=== PATIENT | female | born 1965 | race Caucasian/White ===

== ENCOUNTER → 2016-08-30 | Outpatient (CLI) | payer OTHER ==
--- NOTE | 2016-08-30 14:57 | MA ---
Diagnostic Digital Mammogram With iCAD Analysis Clinical Indications: Evaluate palpable painful area in the medial right breast. Technique: Standard cephalocaudal projections are obtained. Digital breast tomosynthesis was performe d in the MLO projection with reconstruction at 1.0 mm slice thickness and composite MLO views reconst ructed. A skin marker is placed over the palpable region. A true lateral view of the right breast is also performed. This examination is processed by the iCAD computer aided detection system. Comparison: December 2009 and November 2009. Breast density: Type C: Heterogeneously dense. Findings: CAD was reviewed. No masses, suspicious calcifications or secondary signs of malignancy are seen. No discrete mammographic abnormality is seen corresponding to the palpable region. There has b een no significant change in the appearance of either breast. Impression: Palpable area requires further evaluation, BI-RADS 0. Recommendation: Targeted right breast ultrasound which will be subsequently performed today. [facility] will send a result letter to the patient. Negative mammography should not preclude additional workup of a clinically suspicious finding. The patient's information is entered into a reminder system with a target due date for her next mammo gram.
--- NOTE | 2016-08-30 15:32 | US ---
Right Breast Ultrasound History: Evaluate palpable asymmetry in the inferior right breast at the 5-6 o'clock position 8 cm fr om the nipple. Technique: Longitudinal and transverse images were obtained utilizing a 15 MHz transducer. Color Dop pler evaluation is employed for assessment of vascularity. This study is interpreted in conjunction with diagnostic mammography performed earlier today. Findings: On physical examination the palpable asymmetry is identified in the inferior right breast. Sonographic interrogation demonstrates normal glandular elements. The palpable region appears to castillo espond to a breast lobule that is partially circumscribed by fibrous tissue. No suspicious solid mass is identified. The sonographic findings would correlate well with appearance on recent diagnostic to mosynthesis. Impression: Benign findings when considering mammographic and sonographic assessment, BI-RADS 2.. Recommendation: Resume routine mammographic screening in one year as long as physical examination is negative. Findings and follow-up recommendations were reviewed with the patient in detail. [facility] will send a result letter to the patient.
== END ==
LOC: FIMAGING 14:18
PROVIDERS: ATTEND Internal Medicine
DX: N63 Unspecified lump in breast (principal)
CPT/HCPCS: G0204; G0279

== ENCOUNTER 2017-04-05 09:59 | Emergency (ER) | payer OTHER ==
[2017-04-05 10:10] VITALS: BP 140/80; PULSE 80; RESP 20; TEMP 97.9; O2SAT 94
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
== END 2017-04-05 11:04 | disposition home or self-care (01) ==
LOC: CED 09:59
DX: S89.92XA Unspecified injury of left lower leg, initial encounter (principal); W22.8XXA Striking against or struck by other objects, initial encounter
CPT/HCPCS: 73564-PO; L1830

== ENCOUNTER → 2017-08-12 | Outpatient (CLI) | payer OTHER | LOC: FIMAGING 16:51 | PROVIDERS: ATTEND Nurse Practitioner Adult Health | DX: R05 Cough (principal) ==

== ENCOUNTER 2018-06-24 14:02 | Emergency (ER) | payer OTHER ==
[2018-06-24] MEDS ORDERED: ONDANSETRON 4 MG/2 ML VIAL ONE (14:15)
[2018-06-24 14:31] LABS: PLATELET COUNT 148 10^3/uL (150-400)
--- NOTE | 2018-06-24 14:38 | EDPHY ---
HPI/HX/ROS/PE/MDM Narrative: CLINICAL IMPRESSION: Closed head injury, new onset seizure in adult ASSESSMENT/PLAN: This is a 52-year-old female who presents to the emergency department by ambulance after sustaining a closed head injury from ground level fall followed by seizure activity witnessed by a co-worker. Patient was alert on arrival. She was incontinent of urine and did bite her tongue and lip with no suturable laceration. She has a large scalp hematoma over the right parietal region with no overlying laceration or suturable wound. CT head and cervical spine show no evidence of acute intracranial hemorrhage, skull fracture, or intracranial mass. Patient's C-collar was removed by myself, no upper extremity radiculopathy or weakness and full range of motion with no midline pain. Lab work shows no significant electrolyte abnormality, metabolic disturbance, anemia or infectious etiology. Patient has nonfocal neurological exam on recheck. She tolerated p. O. Well. I had a long discussion with the patient that she will require primary care and neurology follow-up. 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 Avoidance of all contact sports, driving, and concussion triggers were discussed until clearance by PCP and Neurology. Patient will take work off tomorrow and does have family and neighbors who can stay with her and help arrange follow-up with specialist and PCP. All questions answered. Warning signs return to ED sooner alignment discharge. Discussed with Dr. Willis. DIFFERENTIAL DX: Differential diagnosis includes but not limited to closed head injury, intracranial hemorrhage, skull fracture, C-spine fracture, seizure, dehydration , electrolyte imbalance, toxidrome. ED PROCEDURES: See CT and lab results below ED COURSE: 3:15 p.m.: Discussed CT findings with Radiology. No acute abnormality noted in the CT head or C-spine. Patient's C-collar was removed by myself. Full range of motion of the neck without upper extremity radiculopathy or weakness. She reports feeling dizzy but believes this is because she has not eaten. She does not want medication for dizziness. No significant headache. P.o. Challenging now 3:45 p.m.: Patient tolerated p.o. Well. No vomiting. Remains alert with no focal neurological deficits at this time. Long discussion regarding concussion , post concussive syndrome, avoidance of driving, contact sports, and other triggers. Follow up with primary care in 1-2 days without fail, Neurology referral given CHIEF COMPLAINT: Closed head injury and seizure HPI: This is a 52-year-old female who presents to the emergency department after she had an unwitnessed fall at work striking the back of her head on a table. According to a co-worker, she then had a 2-3 minute seizure which included "turning blue"and shaking of both arms. Patient was incontinent of urine and reports she did bite her tongue. She arrives by EMS nauseous and vomiting. She complains of a headache. She reports she was feeling well earlier today but admits that she did not have anything to eat today. She has been taking a new weight loss supplement over the last couple weeks in conjunction with an antidepressant. No history of seizure disorder. She does abuse alcohol but states her last drink was 5 days ago and does not have a history of alcohol withdrawal seizures. She denies illicit drug use. She is not anticoagulated. 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 Eyes: No discharge, vision change ENT: No sore throat, congestion, ear pain. Cardiovascular: No chest pain, no palpitations. Respiratory: No cough, no shortness of breath. Gastrointestinal: No abdominal pain, no vomiting, diarrhea. Genitourinary: No hematuria, dysuria, flank pain, pelvic pain Musculoskeletal: No back pain, joint swelling, joint pain, myalgias. Skin: No rashes, color change. Neurological: +headache, dizziness PHYSICAL EXAM: General Appearance: Alert, oriented, appropriate, cooperative, actively vomiting on arrival, appears uncomfortable, diaphoretic HEENT: TMs are clear bilaterally no perforation or FB, no injection, no evidence of serous or mucopurulent otitis. Oropharynx clear is no erythema or exudates, no tonsillar hypertrophy or asymmetry. Dentition without abnormality. Large contusion to right parietal region. No overlying laceration or suturable wound. No Esposito sign or hemotympanum Eyes: PERRLA, no acute vision change, nystagmus, swelling, discharge, pain or photosensitivity. Conjunctiva pink, no pallor or injection Neck: Supple, nontender, no midline pain, exam limited by C-collar Respiratory: There are no retractions, lungs are clear to auscultation, no chest wall tenderness. Cardiac: Regular rate and rhythm, no murmurs or gallops. Gastrointestinal: Abdomen is soft, nontender, bowel sounds normal, no masses/ hernia, no rigidity, guarding or focal peritoneal findings. Neurological: Alert and oriented x 3, CN 2-12 grossly intact, no limb ataxia, DTRs 2 patellar and Achilles tendons intact, Skin: Warm, dry, no rashes, no nodules on palpation. Musculoskeletal: Extremities are symmetrical, full range of motion, no tenderness, deformity, swelling, or erythema. Psychiatric: Patient is oriented X 3, there is no agitation. MEDICAL DECISION MAKING: Patient was seen independently. Secondary supervising physician at time of evaluation was Dr. Willis. Diagnosis: Closed head injury with concussion, new onset seizures in an adult . New, requires workup Summary: See Assessment and Plan for summary of ED visit Clinical lab tests: ordered / reviewed. Independent visualization of images, tracing, or specimens: Yes. Decision to obtain medical records or history from someone other than the patient: Patient's co-worker Discussed patient with another provider: Dr. Willis, radiology Patient Progress: Stabilized, improved. (Nathan Humphreys) MDM: I did not see this patient while she was in the emergency department. However her care was discussed with the PA while the patient was in the department. I agree with treatment plan and management (Kaushal Willis) - Data Points Laboratory Results: Laboratory Results 06/24/18 14:25 06/24/18 14:25 Point of Care Test Results: Chemistry 06/24/18 14:18 POC Sodium 138 mEq/L mEq/L (135-145) POC Potassium 3.1 mEq/L L mEq/L (3.3-5.0) POC Chloride 102 mEq/L mEq/L (97-110) POC BUN 10 mg/dL mg/dL (7-23) POC Creatinine 0.9 mg/dL mg/dL (0.6-1.0) POC Glucose 133 mg/dL H mg/dL (70-100) ISTAT H&H 06/24/18 14:18 POC Hgb 13.3 gm/dL gm/dL (12.6-16.3) POC Hct 39 % % (38-47) General Time Seen by Provider: 06/24/18 14:20 Initial Vital Signs: Initial Vital Signs Temperature (C) 37 C 06/24/18 14:32 Heart Rate 102 H 06/24/18 14:32 Respiratory Rate 16 06/24/18 14:32 Blood Pressure 114/90 H 06/24/18 14:32 O2 Sat (%) 96 06/24/18 14:32 O2 Delivery Mode Room Air Allergies/Adverse Reactions: Penicillins Allergy (Verified 11/13/14 23:16) Home Medications: Medication Instructions Recorded Sertraline HCl 04/05/17 Sprintec 28 Day Tablet 04/05/17 Departure - Departure Disposition: Home, Routine, Self-Care Clinical Impression: Closed head injury, Seizure after head injury, Concussion Condition: Fair Instructions: Concussion (ED), Head Injury (ED), New-Onset Seizure in Adults ( ED) Additional Instructions: DISCHARGE INSTRUCTIONS FROM YOUR DOCTOR Thank you for visiting our emergency department today. Please keep in mind that discharge from the emergency department does not mean that there is nothing wrong - it simply means that we have not identified an emergency condition that requires further evaluation or treatment in the hospital. You should always plan to follow up with primary care for re-evaluation of your condition in the next 2-3 days. If you have been referred to a specialist, please call as soon as possible (today or tomorrow) to schedule your follow up appointment at the appropriate time. You had a CT scan of the head and cervical spine today that did not show any acute abnormalities. However, you likely suffered a concussion. You also appear to have had a seizure. It is important that you do not drive or participate in any dangerous activities until you are clear to return to these activities by a neurologist. A referral was given, please call them for a follow-up and let them know you're in the emergency department and you needed a followup appointment for closed head injury and new onset seizures. Lab work was reassuring. Please eat regular meals and stay well-hydrated. Please avoid TV, computers, video games, texting, and contact sports until you are cleared by primary care and Neurology. Please see her primary care doctor this week to recheck. Return to the emergency department sooner for severe headache, recurrent seizure activity, severe dizziness or vertigo, altered mental status, or any other concern. People present with illnesses and injuries in different ways, and it is always possible that we have missed something. You may always return for re-evaluation if symptoms worsen or if they are not improving or if you develop new/different symptoms. Again, thank you for choosing our emergency department. We hope that you feel better. Referrals: Patient,NotPresent [Primary Care Provider] - As per Instructions Jack Wan MD [Medical Doctor] - 1-2 days without fail Solange Akers MD [Medical Doctor] - 1-2 days without fail Stand Alone Forms: Work Excuse
[2018-06-24 16:08] VITALS: BP 146/98
== END 2018-06-24 16:12 | disposition home or self-care (01) ==
LOC: EDUNIT#
DX: S06.0X9A Concussion with loss of consciousness of unspecified duration, initial encounter (principal); S00.03XA Contusion of scalp, initial encounter; R56.9 Unspecified convulsions; R32 Unspecified urinary incontinence; W19.XXXA Unspecified fall, initial encounter; Y92.89 Other specified places as the place of occurrence of the external cause; Y93.9 Activity, unspecified; Y99.0 Civilian activity done for income or pay
CPT/HCPCS: 82435-PO; 82565-PO; 82947-PO; 84132-PO; 84295-PO; 84520-PO; 85014-PO; J2405

== ENCOUNTER → 2018-07-30 | Outpatient (CLI) | payer OTHER | LOC: FIMAGING 10:42 | PROVIDERS: ATTEND Psychiatry & Neurology Neurology | DX: R90.82 White matter disease, unspecified (principal); J34.89 Other specified disorders of nose and nasal sinuses; Z87.820 Personal history of traumatic brain injury ==

== ENCOUNTER → 2018-08-27 | Outpatient (CLI) | payer OTHER ==
--- NOTE | 2018-08-27 13:30 | CPEEG ---
[f rep st] ELECTROENCEPHALOGRAM SHORT-TERM VIDEO EEG MONITORING SESSION DATE OF STUDY: 08/27/2018 INTERPRETATION: This short-term video EEG monitoring session is normal. There were no potentially e pileptogenic abnormalities present in the awake or sleep recordings. During the video EEG monitoring session, the patient did not have any clinical events. REPORT: This short-term video EEG monitoring session contains 10 Hz alpha activity over the posterio r head regions. There was no abnormal activation at rest, photic stimulation, or hyperventilation. The background activity was normal and symmetric. The patient intermittently became drowsy and fell into sustained sleep during the study. There was no abnormal activation during drowsiness, sleep, or during times of arousal. The patient did not have any clinical events during the short-term video E EG monitoring session. /[id number]/MODL
== END ==
LOC: FCPNEURO 07:52
PROVIDERS: ATTEND Psychiatry & Neurology Neurology
DX: R40.20 Unspecified coma (principal)